=== PATIENT | female | born 1940 | race Caucasian/White ===

== ENCOUNTER 2018-07-24 15:34 | Observation (INO) | payer OTHER ==
[2018-07-24] MEDS ORDERED: ONDANSETRON 4 MG/2 ML VIAL ONE (16:35)
[2018-07-24] MEDS ORDERED: MORPHINE 4 MG/ML SYR ONE (16:35)
[2018-07-24] MEDS ORDERED: NA CHLORIDE 0.9% 500 ML ONE (16:35)
[2018-07-24 16:43] LABS: ALT/SGPT 7 U/L (12-78); AST/SGOT 6 U/L (15-37); Albumin 2.7 g/dL (3.4-5.0); Alkaline Phosphatase 41 U/L (45-117); BUN Blood Urea Nitrogen 13 mg/dL (7-18); Bicarbonate 28 mmol/L (21-32); Bilirubin Direct 0.2 mg/dL (0-0.2); Bilirubin Total 0.6 mg/dL (0.2-1.0); Glucose Level 91 mg/dL (74-106); Lipase 58 U/L (73-393); Potassium 3.5 mmol/L (3.5-5.1); Protein, Total 5.6 g/dL (6.4-8.2); Sodium Level 146 mmol/L (136-145); Troponin (Emerg Dept Use Only) 0.03 ng/mL (0.0-0.045)
--- NOTE | 2018-07-24 17:57 | RAD REPORT ---
EXAM DESCRIPTION: CT - Abdomen Pelvis W Contrast - 07/24/2018 5:35 pm CLINICAL HISTORY: Abdominal pain/right upper quadrant pain COMPARISON: August 2017 CT chest TECHNIQUE: Computed axial tomography of the abdomen pelvis was obtained. 100 cc Isovue-300 was admin istered intravenously. Oral contrast was not requested which limits evaluation of bowel. All CT scans are performed using dose optimization technique as appropriate and may include automated exposure control or mA/KV adjustment according to patient size. FINDINGS: A 3 x 1 centimeter opacity is present within the posterior left lower lobe abutting the pl eural surface. It is mildly enlarged from the prior CAT scan. Clear clear left pleural thickening is present. Tiny bilateral pleural effusions are noted. The liver, spleen, pancreas, adrenal and kidneys demonstrate no significant abnormality. The wall of the distal stomach is thickened. The gallbladder is been removed. . There is no evidence of diverticulitis. IMPRESSION: 3 x 1 centimeter left lower lobe opacity most likely representing rounded atelectasis. N eoplasm can also have this appearance. Follow-up CT chest in 3 months recommended to assess stability . Thickening of the wall of the distal stomach probably representing inflammation. A mass can also have this appearance.
--- NOTE | 2018-07-24 19:33 | ER ---
Nurse's Notes [facility] Name: Rocío Armstrong Age: 78 yrs Sex: Female : 1940 Arrival Date: 07/24/2018 Time: 15:40 Bed 19 Private MD: Diagnosis: Abdominal and pelvic pain Presentation: 07/24 15:42 Presenting complaint: EMS states: PT HAS RIGHT UPPER QUADRANT PAIN, PT ALSO FOUND TO BE ls4 88 PERCENT ON ROOM AIR AT HOME. Transition of care: patient was not received from another setting of care. Onset of symptoms is unknown. Risk Assessment: Do you want to hurt yourself or someone else? Patient reports no desire to harm self or others. Initial Sepsis Screen: Does the patient meet any 2 criteria? No. Patient's initial sepsis screen is negative. Does the patient have a suspected source of infection? No. Patient's initial sepsis screen is negative. Care prior to arrival: Medication(s) given: IV initiated. 20 GA, in the left wrist. 15:42 Method Of Arrival: [facility]: [facility]4 15:42 Acuity: FRANCESCA 3 ls4 Triage Assessment: 15:40 General: Appears uncomfortable. ls4 15:40 Neuro: No deficits noted. Cardiovascular: No deficits noted. Respiratory: No deficits ls4 noted. GI: No deficits noted. Musculoskeletal: No deficits noted. Historical: - Allergies: 16:47 No Known Allergies; ls4 - Home Meds: 16:47 azathioprine 50 mg Oral tab 2 tabs once daily [Active]; esomeprazole magnesium 40 mg ls4 oral cpDR 1 cap once daily [Active]; levothyroxine 112 mcg tab 1 tab once daily [Active]; prednisone 10 mg Oral tab once daily [Active]; clonazepam 0.5 mg Oral TbDL 1 tab ONCE DAILY [Active]; simvastatin 20 mg Oral tab 1 tab once daily [Active]; venlafaxine 75 mg oral cp24 1 cap once daily [Active]; mesalamine oral oral for Crohn's Disease [Active]; - PMHx: 16:47 High Cholesterol; Hypothyroidism; ls4 - Immunization history:: Adult Immunizations unknown. - Social history:: Smoking status: unknown. - Ebola Screening: : No symptoms or risks identified at this time. Screenin:49 Abuse screen: Denies threats or abuse. Denies injuries from another. Nutritional ls4 screening: No deficits noted. Tuberculosis screening: No symptoms or risk factors identified. Fall Risk None identified. Assessment: 16:34 General: Appears uncomfortable, Behavior is calm, cooperative. General: Smells of URINE ls4 . Reports. Pain: Complains of pain in epigastric area and right upper quadrant Pain currently is 8 out of 10 on a pain scale. Quality of pain is described as aching, crampy, Pain began 1 day ago. Neuro: Level of Consciousness is awake, alert, Oriented to person, place, time, situation, Critical Care Rn are equal bilaterally Moves all extremities. Gait is steady, Speech is normal, Facial symmetry appears normal, Pupils are PERRLA, Intact. Cardiovascular: No deficits noted. Capillary refill < 3 seconds Patient's skin is warm and dry. Edema is absent. Respiratory: Reports cough that is non-productive, Airway is patent Respiratory effort is even, unlabored, Respiratory pattern is regular, Breath sounds are diminished bilaterally. GI: Bowel sounds present X 4 quads. Abd is soft and non tender Reports epigastric pain. : Urine is clear, Reports incontinence. Derm: RED EXCORIATED TWAN AREA. REDNESS TO BUTTOCKS AND LABIA. Musculoskeletal: Circulation, motion, and sensation intact. Capillary refill < 3 seconds, Range of motion: intact in all extremities, Reports weakness in GENERAL. 17:02 Reassessment: Patient appears in no apparent distress at this time. No changes from ls4 previously documented assessment. Patient and/or family updated on plan of care and expected duration. Pain level reassessed. Patient is alert, oriented x 3, equal unlabored respirations, skin warm/dry/pink. 18:00 Reassessment: Patient appears in no apparent distress at this time. No changes from ls4 previously documented assessment. Patient and/or family updated on plan of care and expected duration. Pain level reassessed. Patient is alert, oriented x 3, equal unlabored respirations, skin warm/dry/pink. 19:09 Reassessment: Patient appears in no apparent distress at this time. No changes from ls4 previously documented assessment. Patient and/or family updated on plan of care and expected duration. Pain level reassessed. Patient is alert, oriented x 3, equal unlabored respirations, skin warm/dry/pink. Vital Signs: 15:45 BP 130 / 67; Pulse 96; Resp 18; Temp 98.9(TE); Pulse Ox 98% on 3 lpm NC; Pain 7/10; ls4 16:42 BP 127 / 75; Pulse 65; Resp 22; Temp 98.9; Pulse Ox 94% on R/A; Pain 3/10; ls4 17:57 BP 121 / 70; Pulse 91; Resp 16; Temp 98.4; Pulse Ox 99% on 3 lpm NC; Pain 3/10; ls4 19:06 BP 116 / 70; Pulse 88; Resp 16; Pulse Ox 99% on R/A; Pain 3/10; ls4 20:15 BP 132 / 78; Pulse 88; Resp 19; Pulse Ox 99% on 3 lpm NC; Pain 3/10; ls4 ED Course: 15:40 Patient arrived in ED. em1 15:42 Marielena Godoy, RN is Primary Nurse. ls4 15:42 Steven Padilla MD is Attending Physician. kdr 15:45 Triage completed. ls4 15:45 Arm band placed on right wrist. ls4 15:54 Radiology exam delayed due to lab results not completed at this time. (BUN/Creatinine). jg6 16:22 Radiology exam delayed due to lab results not completed at this time. (BUN/Creatinine). vm2 16:47 Patient has correct armband on for positive identification. Bed in low position. Call ls4 light in reach. Side rails up X 1. Adult w/ patient. playground monitor on. Pulse ox on. NIBP on. Warm blanket given. Pillow given. Verbal reassurance given. PATIENT CHANGED AND CLEANED. BED HAJI PROVIDED. 16:49 No provider procedures requiring assistance completed. Maintain EMS IV. Dressing ls4 intact. Good blood return noted. Site clean \T\ dry. Gauge \T\ site: 20. 16:54 Radiology exam delayed due to lab results not completed at this time. (BUN/Creatinine). vm2 17:[address] via stretcher. nj 17:35 CT completed. Patient tolerated procedure well. Patient moved back from CT. nj 17:36 CT Abd/Pelvis - W/Contrast In Process Unspecified. EDMS 19:30 Nils Gay MD is Hospitalizing Provider. kdr 20:52 intact. ls4 Administered Medications: 16:32 Drug: NS 0.9% 500 ml Route: IV; Rate: bolus; Site: left wrist; ls4 17:32 Follow up: IV Status: Completed infusion; IV Intake: 500ml ls4 16:33 Drug: morphine 2 mg Route: IVP; Site: left wrist; ls4 17:15 Follow up: Response: No adverse reaction; Marked relief of symptoms ls4 16:33 Drug: Zofran 4 mg Route: IVP; Site: left wrist; ls4 17:15 Follow up: Response: No adverse reaction; Marked relief of symptoms ls4 Intake: 17:32 IV: 500ml; Total: 500ml. ls4 Outcome: 18:00 Condition: good ls4 19:32 Decision to Hospitalize by Provider. kdr 20:36 Admitted to Med/surg Report called to Chayito COTA ls4 20:53 Patient left the ED. ls4 Signatures: Dispatcher [employer] Steven Hudson MD MD kdr Martinez, Eric em1 Jordan, Nathan nj McGuire, Victoria 2 Maryjo Harvey Lisa RN RN ls4
--- NOTE | 2018-07-24 19:33 | EDPHYS ---
Physician Documentation [facility] Name: Rocío Armstrong Age: 78 yrs Sex: Female : 1940 Arrival Date: 07/24/2018 Time: 15:40 Bed 19 Private MD: ED Physician Steven Padilla Historical: - Allergies: 07/24 16:47 No Known Allergies; ls4 - Home Meds: 16:47 azathioprine 50 mg Oral tab 2 tabs once daily [Active]; esomeprazole magnesium 40 mg ls4 oral cpDR 1 cap once daily [Active]; levothyroxine 112 mcg tab 1 tab once daily [Active]; prednisone 10 mg Oral tab once daily [Active]; clonazepam 0.5 mg Oral TbDL 1 tab ONCE DAILY [Active]; simvastatin 20 mg Oral tab 1 tab once daily [Active]; venlafaxine 75 mg oral cp24 1 cap once daily [Active]; mesalamine oral oral for Crohn's Disease [Active]; - PMHx: 16:47 High Cholesterol; Hypothyroidism; ls4 - Immunization history:: Adult Immunizations unknown. - Social history:: Smoking status: unknown. - Ebola Screening: : No symptoms or risks identified at this time. Vital Signs: 15:45 BP 130 / 67; Pulse 96; Resp 18; Temp 98.9(TE); Pulse Ox 98% on 3 lpm NC; Pain 7/10; ls4 16:42 BP 127 / 75; Pulse 65; Resp 22; Temp 98.9; Pulse Ox 94% on R/A; Pain 3/10; ls4 17:57 BP 121 / 70; Pulse 91; Resp 16; Temp 98.4; Pulse Ox 99% on 3 lpm NC; Pain 3/10; ls4 19:06 BP 116 / 70; Pulse 88; Resp 16; Pulse Ox 99% on R/A; Pain 3/10; ls4 20:15 BP 132 / 78; Pulse 88; Resp 19; Pulse Ox 99% on 3 lpm NC; Pain 3/10; ls4 MDM: 19:32 Patient medically screened. kdr 07/24 15:52 Order name: Basic Metabolic Panel; Complete Time: 17:50 kdr 07/24 15:52 Order name: CBC with Diff kdr 07/24 15:52 Order name: Creatinine for Radiology; Complete Time: 17:50 kdr 07/24 15:52 Order name: Hepatic Function; Complete Time: 17:50 [facility] 07/24 15:52 Order name: Lipase; Complete Time: 17:50 [facility] 07/24 15:52 Order name: Troponin (emerg Dept Use Only); Complete Time: 17:50 [facility] 07/24 15:52 Order name: IV Saline Lock; Complete Time: 16:33 [facility] 07/24 15:52 Order name: Labs collected and sent; Complete Time: 16:33 [facility] 07/24 15:52 Order name: EKG - Nurse/Tech; Complete Time: 19:14 [facility] 07/24 15:52 Order name: CT Abd/Pelvis - W/Contrast; Complete Time: 18:35 kdr Administered Medications: 16:32 Drug: NS 0.9% 500 ml Route: IV; Rate: bolus; Site: left wrist; ls4 17:32 Follow up: IV Status: Completed infusion; IV Intake: 500ml ls4 16:33 Drug: morphine 2 mg Route: IVP; Site: left wrist; ls4 17:15 Follow up: Response: No adverse reaction; Marked relief of symptoms ls4 16:33 Drug: Zofran 4 mg Route: IVP; Site: left wrist; ls4 17:15 Follow up: Response: No adverse reaction; Marked relief of symptoms ls4 Disposition: 07/24/18 19:32 Hospitalization ordered by Nils Gay for Inpatient Admission. Preliminary diagnosis is Abdominal and pelvic pain. - Bed requested for Telemetry/MedSurg (Inpatient). - Status is Inpatient Admission. ls4 - Condition is Fair. - Problem is new. - Symptoms have improved. UTI on Admission? No Signatures: Dispatcher [employer] EDMS Michelle Fabian RN RN Steven Padilla MD MD [facility] Marielena Godoy RN RN ls4 Corrections: (The following items were deleted from the chart) 19:44 19:32 Hospitalization Ordered by Nils Gay MD for Inpatient Admission. Preliminary diagnosis is Abdominal and pelvic pain. Bed requested for Telemetry/MedSurg (Inpatient). Status is Inpatient Admission. Condition is Fair. Problem is new. Symptoms have improved. UTI on Admission? No. kdr 20:53 19:44 07/24/2018 19:32 Hospitalization Ordered by Nils Gay MD for Inpatient ls4 Admission. Preliminary diagnosis is Abdominal and pelvic pain. Bed requested for Telemetry/MedSurg (Inpatient). Status is Inpatient Admission. Condition is Fair. Problem is new. Symptoms have improved. UTI on Admission? No. mw
[2018-07-24] MEDS ORDERED: ACETAMINOPHEN 500 MG TAB PO PRN (19:34)
[2018-07-24] MEDS ORDERED: ONDANSETRON 4 MG/2 ML VIAL IV PRN (19:34)
[2018-07-24] MEDS: D5 0.45 NS 1,000 ML IV SCH (21:59)
[2018-07-25] MEDS: MORPHINE 4 MG/ML SYR IV PRN ×2 (00:08→12:35)
[2018-07-25 06:43] LABS: AST/SGOT 7 U/L (15-37); Albumin 2.6 g/dL (3.4-5.0); Alkaline Phosphatase 41 U/L (45-117); BUN Blood Urea Nitrogen 14 mg/dL (7-18); Bicarbonate 31 mmol/L (21-32); Bilirubin Direct 0.1 mg/dL (0-0.2); Bilirubin Total 0.4 mg/dL (0.2-1.0); Glucose Level 91 mg/dL (74-106); Lipase 67 U/L (73-393); Protein, Total 5.7 g/dL (6.4-8.2); Sodium Level 146 mmol/L (136-145)
[2018-07-25 06:44] LABS: ALT/SGPT < 6 U/L (12-78)
[2018-07-25] MEDS: SODIUM CHLORIDE 0.9% 10ML INJ IV PRN ×2 (08:23→20:40)
[2018-07-25] MEDS: D5 0.45 NS 1,000 ML IV SCH ×2 (08:23→18:03)
[2018-07-25] MEDS ORDERED: PANTOPRAZOLE 40 MG INJ IVP SCH (09:00)
--- NOTE | 2018-07-25 14:02 | EKG ---
Test Date: 2018-07-24 Test Time: 19:08:26 Stitching Department Supervisor: TERESO MEASUREMENT RESULTS: Intervals: Rate: 83 MN: 132 QRSD: 82 QT: 416 QTc: 488 [place]: P: 37 MN: 132 QRS: 265 T: 53 INTERPRETIVE STATEMENTS: Sinus rhythm with premature atrial complexes Possible Left atrial enlargement Right superior axis deviation Pulmonary disease pattern Inferior infarct, age undetermined Abnormal ECG Compared to ECG 09/30/2010 20:01:36 Atrial premature complex(es) now present Right superior axis now present Right ventricular hypertrophy no longer present Myocardial infarct finding still present Electronically Signed On 07-25-18 13:59:00 ACCOUNTING ASSOCIATE by Errol Hein
--- NOTE | 2018-07-25 14:13 | P.HP ---
Certification for Inpatient Patient admitted to: Observation With expected LOS: <2 Midnights Practitioner: I am a practitioner with admitting privileges, knowledge of patient current condition, hospital course, and medical plan of care. Services: Services provided to patient in accordance with Admission requirements found in Title 42 Section 412.3 of the Code of Federal Regulations Patient History Date of Service: 07/25/18 Reason for admission: SEVERE EPIG PAIN History of Present Illness: MS PRESSLEY HAD SEVERE EPIG PAIN AFTER FOOD, SHE WOKE UP WITH THE PAIN. SHE WAS BENT OVER AND COULD NOT MOVE. THEY CALLED AMBULANCE TO GET HER TO ER. DR. UGARTE ADMITTED HER. Allergies No Known Allergies Allergy (Unverified 07/24/18 20:06) Home Medications: Esomeprazole Magnesium 40 mg PO DAILY 07/24/18 Levothyroxine [Synthroid*] 0.112 mcg PO [id number] 07/24/18 Simvastatin 20 mg PO BEDTIME 07/24/18 Venlafaxine HCl 75 mg PO DAILY 07/24/18 azaTHIOprine [Azathioprine] 50 mg PO DAILY 07/24/18 clonazePAM [Clonazepam] 0.5 mg PO BEDTIME 07/24/18 predniSONE [Prednisone*] 10 mg PO DAILY 07/24/18 - Past Medical/Surgical History Has patient received pneumonia vaccine in the past: Yes Diabetic: No -: Crohns Disease -: Hypertension -: High Cholesterol -: C-sectionx3 -: Hysterectomy -: Cholecystectomy - Family History Father -: Liver disease Mother -: Heart disease, Diabetes, Cancer Notes: pancreatic ca - Social History Smoking Status: Current every day smoker Alcohol use: No CD- Drugs: No Caffeine use: Yes Place of Residence: Home Review of Systems 10-point ROS is otherwise unremarkable General: Weakness, Malaise Gastrointestinal: Abdominal Pain Physical Examination - Vital Signs Temperature: 97.5 F Blood Pressure: 104/57 Pulse: 69 Respirations: 16 Pulse Ox (%): 97 - Physical Exam General: Alert, Moderate distress HEENT: Atraumatic, PERRLA, Mucous membr. moist/pink, EOMI, Sclerae nonicteric Neck: Supple, 2+ carotid pulse no bruit, No LAD, Without JVD or thyroid abnormality Respiratory: Clear to auscultation bilaterally, Normal air movement Cardiovascular: Regular rate/rhythm, Normal S1 S2 Gastrointestinal: Normal bowel sounds, Tenderness (EPIG, MILD AFTER NARCOTIC INFECTION) Musculoskeletal: No tenderness Integumentary: No rashes Neurological: Normal gait, Normal speech, Normal strength at 5/5 x4 extr, Normal tone, Normal affect Lymphatics: No axilla or inguinal lymphadenopathy - Studies Laboratory Data (last 24 hrs) 07/24/18 16:08: Creatinine 0.54 L 07/24/18 16:08: WBC 6.6, Hgb REPORTS ANALYSIS MANAGER, Hct REPORTS ANALYSIS MANAGER, Plt Count REPORTS ANALYSIS MANAGER 07/24/18 16:08: Sodium 146 H, Potassium 3.5, BUN 13, Creatinine 0.53 L, Glucose 91, Total Bilirubin 0.6, AST 6 L, ALT 7 L, Alkaline Phosphatase 41 L, Lipase 58 L Assessment and Plan - Problems (Diagnosis) (1) Gastric wall thickening Current Visit: Yes Status: Acute Plan: DR. JASSO CALLED IN FOR EGD SHE IS NOT ABLE TOLERATE DIET. SHEIS ALREADY ON PROTONIX RULE OUT MORE SERIOUS ILLNESS VIA EGD. (2) Pleural nodule Current Visit: Yes Status: Acute Plan: WITH HER POOR GENERAL CONDITION AND ANXIETY FAMILY AND SHE HAD DEDICED NOT TO DO ANYTHING FOR THISIN THE PAST. WILL CT CHEST FOR FU IF THEY WANT. (3) Severe anxiety Current Visit: Yes Status: Chronic Plan: VERY ANXIOUS AND TAKES MEDS FOR IT. (4) Abdominal pain Current Visit: Yes Status: Acute Plan: SHE FAILED TO IMPROVE SO DR JASSO HAS BEEN CALLED. HE HAS SEEN HER BEFORE. - Advance Directives Does patient have a Living Will: No Does patient have a Durable POA for Healthcare: Yes
[2018-07-25] MEDS: SUCRALFATE 1GM/10ML UCUP FT SCH (20:38)
[2018-07-25] MEDS: PANTOPRAZOLE 40 MG INJ IVP SCH (20:39)
[2018-07-25] MEDS ORDERED: ATORVASTATIN 10 MG TAB PO SCH (21:00)
[2018-07-25] MEDS ORDERED: HOME MED 1 EA UNK (Simvastatin [Simvastatin] 20 MG) PO SCH (21:00)
[2018-07-25] MEDS ORDERED: clonazePAM 0.5 MG TAB PO SCH (21:00)
[2018-07-26] MEDS ORDERED: LEVOTHYROXINE SOD 0.112 MG TAB PO SCH (06:00)
[2018-07-26] MEDS: SUCRALFATE 1GM/10ML UCUP FT SCH ×2 (07:30→11:30)
[2018-07-26] MEDS ORDERED: VENLAFAXINE HCL XR 75 MG CAP PO SCH (09:00)
[2018-07-26] MEDS: D5 0.45 NS 1,000 ML IV SCH (09:30)
[2018-07-26] MEDS: PANTOPRAZOLE 40 MG INJ IVP SCH (09:52)
--- NOTE | 2018-07-26 09:52 | P.DS ---
Admission Date: 07/24/18 Discharge Date: 07/26/18 Disposition: ROUTINE DISCHARGE Discharge Condition: FAIR Reason for Admission: SEVERE EPIG PAIN - Problems (1) Gastric wall thickening Current Visit: Yes Status: Acute (2) Pleural nodule Current Visit: Yes Status: Acute (3) Severe anxiety Current Visit: Yes Status: Chronic (4) Abdominal pain Current Visit: Yes Status: Acute Brief History of Present Illness: MS PRESSLEY HAD SEVERE EPIG PAIN AFTER FOOD, SHE WOKE UP WITH THE PAIN. SHE WAS BENT OVER AND COULD NOT MOVE. THEY CALLED AMBULANCE TO GET HER TO ER. DR. UGARTE ADMITTED HER. MS PRESSLEY HAS SEVERE ANXIETY. SHE IS DOING BETTER ON NEXIUM AND CARAFATE. SHE IS STABLE TO GO HOME. ON HER CT SCAN SHE HAS GASTRIC THICKENING THAT MAY BE JUST FOLDS. SHE HAD EGD BY DR JASSO WITHIN A YEAR. HE WILL FU. I ALSO TOLD FAMILY ABOUT THE NODULE IN THE LUNG AND THEY WITH HER POOR PULMONARY STATUS, AGE AND ANXIETY DO NOT WANT TO TO ANYTHING ABOUT IT. IT IS SLOW GROWING AND THERE ARE CHANCES IT CAN BE BENIGN ALSO. Vital Signs/Physical Exam: Temp Pulse Resp BP Pulse Ox 97.5 F 97 H 16 126/61 94 07/26/18 04:00 07/26/18 04:00 07/26/18 04:00 07/26/18 04:00 07/26/18 04:00 Laboratory Data at Discharge: WBC 7.1 K/uL (4.3-10.9) 07/25/18 05:43 Hgb DEGREASING SOLUTION RECLAIMER 07/25/18 05:43 Hct DEGREASING SOLUTION RECLAIMER 07/25/18 05:43 Plt Count DEGREASING SOLUTION RECLAIMER 07/25/18 05:43 Sodium 146 mmol/L (136-145) H 07/25/18 05:43 Potassium 4.0 mmol/L (3.5-5.1) 07/25/18 05:43 BUN 14 mg/dL (7-18) 07/25/18 05:43 Creatinine 0.53 mg/dL (0.55-1.3) L 07/25/18 05:43 Glucose 91 mg/dL (74-106) 07/25/18 05:43 Total Bilirubin 0.4 mg/dL (0.2-1.0) 07/25/18 05:43 AST 7 U/L (15-37) L 07/25/18 05:43 ALT < 6 U/L (12-78) L 07/25/18 05:43 Alkaline Phosphatase 41 U/L (45-117) L 07/25/18 05:43 Lipase 67 U/L (73-393) L 07/25/18 05:43 Home Medications: Esomeprazole Magnesium 40 mg PO DAILY 07/24/18 Levothyroxine [Synthroid*] 0.112 mcg PO [id number] 07/24/18 Simvastatin 20 mg PO BEDTIME 07/24/18 azaTHIOprine [Azathioprine] 50 mg PO DAILY 07/24/18 clonazePAM [Clonazepam] 0.5 mg PO BEDTIME 07/24/18 predniSONE [Prednisone*] 10 mg PO DAILY 07/24/18 Venlafaxine HCl [Venlafaxine HCl ER] 75 mg PO DAILY WITH BREAKFAST 07/25/18 Sucralfate [Carafate Liq] 10 ml PO ACHS #32 oz 07/26/18 New Medications: Sucralfate [Carafate Liq] 10 ml PO ACHS #32 oz
[2018-07-26] MEDS ORDERED: DEXAMETHASONE 4 MG/ML VIAL IV ONE (11:33)
[2018-07-26] MEDS ORDERED: LORAZEPAM 0.5 MG TABLET PO ONE (11:41)
--- NOTE | 2018-07-26 12:22 | RAD REPORT ---
EXAM DESCRIPTION: CT - Chest For Pe Angio - 07/26/2018 12:07 pm CLINICAL HISTORY: sob COMPARISON: None. TECHNIQUE: Dynamically enhanced axial 3 mm thick images of the chest were obtained during administra tion of <100> mL Isovue 370 IV contrast. Coronal and oblique reconstruction images were generated and reviewed. Exam utilizes a protocol for optimal evaluation of pulmonary arterial tree. Maximum intensity projections 3D imaging was utilized All CT scans are performed using dose optimization technique as appropriate and may include automated exposure control or mA/KV adjustment according to patient size. FINDINGS: A pulmonary embolus is not seen. The main pulmonary artery is dilated which may indicate p ulmonary arterial hypertension. A thoracic aortic aneurysm is not noted. Small pleural effusions are present. A pericardial effusion is not seen. Mild right lower lobe atelectasis. 3.1 centimeter area of rounded atelectasis within the left lower l obe IMPRESSION: Negative for a pulmonary embolism.
== END 2018-07-26 16:22 | disposition home or self-care (01) ==
LOC: ER 15:34 → INTOOBSV 19:40 → ERHOLD 19:40 → 2ND 20:42
PROVIDERS: ADMIT Internal Medicine; ATTEND Internal Medicine
DX: R93.3 Abnormal findings on diagnostic imaging of other parts of digestive tract (principal); R91.1 Solitary pulmonary nodule; F41.9 Anxiety disorder, unspecified; R10.9 Unspecified abdominal pain; E03.9 Hypothyroidism, unspecified; I10 Essential (primary) hypertension; F17.210 Nicotine dependence, cigarettes, uncomplicated
CPT/HCPCS: 36415; 71275; 74177; 80048 ×2; 80076 ×2; 83690 ×2; 84484; 85025 ×2; 93005; 96361; 96374; 96375; C9113 ×3; G0378 ×2; J2405; Q9967 ×2